=== PATIENT | female | born 1990 | race Caucasian/White ===

== ENCOUNTER 2022-06-09 11:16 | Outpatient (CLI) | payer BC, SELFPAY ==
[2022-06-09 12:24] LABS: Influenza Control Positive
[2022-06-09 12:46] LABS: RSV RNA, RT-PCR Negative (Negative)
== END 2022-06-09 11:17 | disposition home or self-care (01) ==
PROVIDERS: PCP Physician Assistant; Visit Provider Internal Medicine
DX: B34.9 Viral infection, unspecified (principal); J02.9 Acute pharyngitis, unspecified
CPT/HCPCS: 87070; 87634; 87804

== ENCOUNTER 2025-06-23 17:41 | Emergency (ER) | payer OTHER, SELFPAY ==
[2025-06-23 17:54] VITALS: BP 154/94; PULSE 93; RESP 18; TEMP 36.4; O2SAT 100
--- NOTE | 2025-06-23 18:17 | ED_ITS ---
HPI - Extremity Injury (Lower) General Chief Complaint: Extremity Injury, Lower Stated Complaint: R knee Time Seen by Provider: 06/23/25 18:02 Source: patient and RN notes reviewed Mode of arrival: ambulatory Limitations: no limitations History of Present Illness HPI Narrative: Patient presents today complaining of 6 day history of right medial knee pain that has been worsening since onset. Denies injury or trauma, numbness or tingling. Pain is worse when moving from side to side such as with driving. Pain is better when standing and walking. She has tried motrin and aleve. Aleve provides some relief and currently rates her pain 0/10 at rest and 7/10 with movement. Patient walks [phone] steps per day without difficulty. She has not recently changed shoes or walked on uneven surfaces. Related Data Allergies Allergy/AdvReac Type Severity Reaction Status Date / Time No Known Allergies Allergy Verified 06/23/25 17:54 PMFSH Past Medical History Medical History COPD (chronic obstructive pulmonary disease) Anxiety Family History Family History Mother Asthma Diabetes mellitus Hypertension Sibling Asthma Depression Anxiety Father No problems noted. 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 Please see nursing chart for further information. There is no relevant family history pertinent to the presenting complaint Exam Narrative: GENERAL: Well-appearing, over-nourished, and in no acute distress. Upon entering the room, patient sits on the exam table swinging her legs back and forth without indication of discomfort. HEAD: Normocephalic, atraumatic. EYES: EOMI. No redness or drainage. ENT: Mucous membranes pink and moist. NECK: Normal AROM. CHEST: No respiratory distress. EXTREMITIES:Right knee: Very mild tenderness to the medial knee. Small twinge of pain to this area with passive extension, internal and external rotation. No bony tenderness of the patella. No tenderness to the patellar tendon, posterior knee, lateral joint line. Unable to accurately assess edema due to body habitus. Distal sensation intact. Capillary refill normal. Posterior tibial pulse normal. SKIN: Warm, dry, no rash. Capillary refill normal. Normal skin turgor. NEURO: No focal deficits. Alert and oriented x3. Gait steady. PSYCH: Normal affect. No signs of depression or anxiety. Course Course Level of Care: Express Care Visit Vital Signs Vital signs: Vital Signs Temperature 97.5 F L 06/23/25 17:54 Pulse Rate 93 06/23/25 17:54 Respiratory Rate 18 06/23/25 17:54 Blood Pressure 154/94 H 06/23/25 17:54 Pulse Oximetry 100 06/23/25 17:54 Oxygen Delivery Room Air 06/23/25 17:54 Temperature 97.5 F L 06/23/25 17:54 Pulse Rate 93 06/23/25 17:54 Respiratory Rate 18 06/23/25 17:54 Blood Pressure 154/94 H 06/23/25 17:54 Pulse Oximetry 100 06/23/25 17:54 Oxygen Delivery Room Air 06/23/25 17:54 reviewed MDM - Extremity Injury (Lower) MDM Narrative Medical decision making narrative: Patient presents today complaining of 6 day history of right medial knee pain that has been worsening since onset. Denies injury or trauma, numbness or tingling. Pain is worse when moving from side to side such as with driving. Pain is better when standing and walking. She has tried motrin and aleve. Aleve provides some relief and currently rates her pain 0/10 at rest and 7/10 with movement. Patient walks [phone] steps per day without difficulty. She has not recently changed shoes or walked on uneven surfaces. Upon exam, patient on exam table swinging legs back and forth without discomfort. Very mild tenderness to the medial knee. Small twinge of pain to this area with passive extension, internal and external rotation. No bony tenderness of the patella. No tenderness to the patellar tendon, posterior knee, lateral joint line. Unable to accurately assess edema due to body habitus. Distal sensation intact. Capillary refill normal. Posterior tibial pulse normal. No indication for xray at this time. Recommend seeking further evaluation with PCP or orthopedics. Continue NSAID for pain as needed. Patient agrees with plan. Vital signs stable. Anticipatory guidance given. Differential Diagnosis Differential diagnosis: Likely other (Osteoarthritis, meniscus injury, ligamentous injury) Critical Care Time Critical Care Time Critical Care Time: No Discharge Plan Discharge Clinical Impression: Acute pain of right knee Patient Disposition: Home Condition: Stable Instructions: Knee Pain (ED), P.R.I.C.E. Treatment (ED) Additional Instructions: Continue an anti-inflammatory such as Aleve or ibuprofen help with your discomfort. He may consider decreasing your amount of exercise at this time until your further evaluated. Please schedule a follow-up visit with your PCP or orthopedics. Patient Language: Frisian Prescriptions: No Action amlodipine 5 mg tablet 5 mg PO DAILY Qty: 90 3RF escitalopram oxalate 10 mg tablet 10 mg PO DAILY Qty: 90 3RF Follow-up/Referrals: Julio Bee MD [Physician, Orthopedics] Keven Quintana DO [Primary Care Provider, Internal Medicine] Time of Disposition: 18:13
== END 2025-06-23 18:20 | disposition home or self-care (01) ==
PROVIDERS: Emergency Provider Nurse Practitioner; PCP Internal Medicine
DX: M25.561 Pain in right knee (principal); J44.9 Chronic obstructive pulmonary disease, unspecified; F41.9 Anxiety disorder, unspecified
CPT/HCPCS: 99212; G0463